=== PATIENT | female | born 1945 | race Caucasian/White ===

== ENCOUNTER 2019-02-04 13:45 | Emergency (ER) | payer MEDICARE ==
[~2019-02-04] VITALS: Ht 165.1 cm; Wt 74.1 kg
[~2019-02-04 13:45] MED LIST: ATEN-169 PO; ESOM40CA PO; GABA600T13 PO; LISI1TAB32 PO
[2019-02-04 15:53] VITALS: BP 127/52
== END 2019-02-04 15:55 | disposition home or self-care (01) ==
LOC: ER 13:45
DX: S43.421A Sprain of right rotator cuff capsule, initial encounter (principal); S60.221A Contusion of right hand, initial encounter; S09.8XXA Other specified injuries of head, initial encounter; M54.5 Low back pain; I10 Essential (primary) hypertension; Z88.0 Allergy status to penicillin; Z79.899 Other long term (current) drug therapy; Z90.49 Acquired absence of other specified parts of digestive tract; Z98.890 Other specified postprocedural states; W18.39XA Other fall on same level, initial encounter; Y93.89 Activity, other specified; Y92.89 Other specified places as the place of occurrence of the external cause; Y99.8 Other external cause status
CPT/HCPCS: 70450; 71045; 72125; 73030; 73130; 99284

== ENCOUNTER 2021-01-25 06:59 | Day surgery (SDC) | payer MEDICARE ==
[2021-01-18 16:28] LABS: BASOPHILS % (AUTO) 0.7 % (0-1); EOSINOPHILS # (AUTO) 0.2 X10'3 (0-0.9); LYMPHOCYTES # (AUTO) 2.2 X10'3 (1.1-4.8); MEAN CORPUSCULAR HEMOGLOBIN 33.2 PG (27.0-31.0); MEAN CORPUSCULAR HGB CONC 33.9 g/dL (33.0-36.5); MEAN CORPUSCULAR VOLUME 98.1 FL (78-98); MEAN PLATELET VOLUME 9.1 FL (7.4-10.4); MONOCYTES # (AUTO) 0.7 X10'3 (0-0.9); NEUTROPHILS % (AUTO) 48.3 % (42-75); PRE OP HEMATOCRIT 36.2 % (35.0-45.0); PRE OP HEMOGLOBIN 12.2 g/dL (12.0-16.0); PRE OP PLATELET COUNT 320 X10'3 (140-440); RED BLOOD COUNT 3.69 X10'6 (4.20-5.60); RED CELL DISTRIBUTION WIDTH 14.8 % (11.5-14.5)
[2021-01-18 16:43] LABS: ALBUMIN 4.3 G/DL (3.4-5.0); ALBUMIN/GLOBULIN RATIO 1.3 (1.1-1.5); ALKALINE PHOSPHATASE 32 IU/L (46-116); BLOOD UREA NITROGEN 18 MG/DL (7-18); BUN/CREATININE RATIO 16.8 (6.6-38.0); CALCIUM 8.8 MG/DL (8.5-10.1); CHLORIDE 100 MMOL/L (99-107); CREATININE 1.07 MG/DL (0.40-0.90); PRE OP ALT 25 U/L (30-65); PRE OP ANION GAP 12 (8-16); PRE OP AST 18 U/L (10-37); PRE OP BILIRUB, TOTAL 0.5 MG/DL (0.0-1.0); PRE OP GLUCOSE 98 MG/DL (70-104); PRE OP POTASSIUM 3.5 MMOL/L (3.4-5.1); PRE OP SODIUM 136 MMOL/L (135-145); TOTAL PROTEIN 7.5 G/DL (6.4-8.2); eGFR 50 ML/MIN
[2021-01-25] VITALS (7 sets, daily range): BP systolic 110–132; BP diastolic 72–96
[~2021-01-25] VITALS: Ht 163.8 cm; Wt 83.2 kg
[~2021-01-25 06:59] MED LIST changes: +ACET-2119 PO; -ATEN-169 PO; +ATRNS; +CALC-336 PO; +CRAN450T4 PO; +DENO60DI SUBCUT; +DOCUMENT DATE & TIME OF BETA-BLOCKER PO ONE; -ESOM40CA PO; +FENO145T26 PO; -GABA600T13 PO; +HYDR12.55 PO; -LISI1TAB32 PO; +LYR75C PO; +MONT10TA32 PO; +MULT-1085 PO; +PANT-47 PO; +RIVA20TA PO; +clindamycin-Cleocin 900mg/D5W 50 ML IV ONE; +famotidine 20mg tablet PO ONE; +ringers solution, lacted 1,000 ML IV SCH
[2021-01-25] MEDS ORDERED: BUPIVAcaine/PF 2.5mg/ml (0.25%) 10ml vial ONE (07:03)
[2021-01-25] MEDS ORDERED: LIDOcaine 1% 30ml preserv. free vial ONE (07:43)
[2021-01-25] MEDS ORDERED: METO-384 PO (08:13)
[2021-01-25] MEDS ORDERED: fentaNYL/PF 50MCG/1 ML 2ML syringe ONE (08:37)
[2021-01-25] MEDS ORDERED: midazolam 1 mg/ML 2ml injection ONE (08:37)
[2021-01-25] MEDS ORDERED: acetaminophen 1,000mg/100ml IV 100 ML IV ONE (08:41)
[2021-01-25] MEDS ORDERED: ketorolac trometh. 30mg/ml inj. ONE (09:24)
--- NOTE | 2021-01-25 09:42 | NUR ---
Received from OR via [facility] IN STABLE CONDITION , accompanied by Anesthesiologist and SUGAR HOUSE SUPERVISOR report given by SUGAR HOUSE SUPERVISOR AND Anesthesiolgist. Addendum: 01/25/21 at 1020 by Isabel Pan RN Amended: Links added.
--- NOTE | 2021-01-25 09:45 | NUR ---
OVERRIDE METOLLIEOL FOR DR. GARRISON FOR HIGH HEARTRATE 160BPM. Addendum: 01/25/21 at 1019 by Isabel Pan RN Amended: Links added.
[2021-01-25] MEDS ORDERED: metoprolol tartrate 1mg/ml inj IV ONE (09:46)
--- NOTE | 2021-01-25 10:42 | NUR ---
PATIENT DISCHARGED FROM PACU AFTER VERBAL AND WRITTEN DISCHARGE INSTRUCTIONS GIVEN. PATIENT GAVE VERBAL UNDERSTANDING OF INSTRUCTIONS GIVEN. PATIENT LEFT FACILITY VIA WHEELCHAIR WITH RN. Addendum: 01/25/21 at 1108 by Isabel Pan RN Amended: Links added.
== END 2021-01-25 10:42 | disposition home or self-care (01) ==
LOC: PAS 06:59
PROVIDERS: ATTEND Orthopaedic Surgery Hand Surgery
DX: L60.8 Other nail disorders (principal); Z20.822 Contact with and (suspected) exposure to COVID-19; M19.011 Primary osteoarthritis, right shoulder; M17.0 Bilateral primary osteoarthritis of knee; M19.071 Primary osteoarthritis, right ankle and foot; M19.072 Primary osteoarthritis, left ankle and foot; I48.20 Chronic atrial fibrillation, unspecified; I10 Essential (primary) hypertension; K21.9 Gastro-esophageal reflux disease without esophagitis; M81.0 Age-related osteoporosis without current pathological fracture; E66.9 Obesity, unspecified; Z68.30 Body mass index [BMI] 30.0-30.9, adult; Z79.899 Other long term (current) drug therapy; Z88.0 Allergy status to penicillin; Z98.890 Other specified postprocedural states; Z85.828 Personal history of other malignant neoplasm of skin; Z90.49 Acquired absence of other specified parts of digestive tract; Z98.41 Cataract extraction status, right eye; Z98.42 Cataract extraction status, left eye
CPT/HCPCS: 11750; 36415; 71046; 80053; 82948; 85025; J0131; J1885; J2001; J2250; J3010; J3490; J7120; U0003; U0005; Z7506; A4215; A4618; A7000

== ENCOUNTER 2021-05-03 15:09 | Emergency (ER) | payer MEDICARE ==
[~2021-05-03] VITALS: Ht 162.6 cm; Wt 81.8 kg
[~2021-05-03 15:09] MED LIST changes: -DOCUMENT DATE & TIME OF BETA-BLOCKER PO ONE; +METO-384 PO; +MONT-40 PO; -MONT10TA32 PO; -clindamycin-Cleocin 900mg/D5W 50 ML IV ONE; -famotidine 20mg tablet PO ONE; -ringers solution, lacted 1,000 ML IV SCH
[2021-05-03] MEDS ORDERED: HYDROcodone/acetaminophen 5mg/325mg tablet PO ONE (21:40)
[2021-05-03] MEDS ORDERED: ondansetron 4mg rapidly disintigrating tab PO ONE (21:40)
--- NOTE | 2021-05-03 21:51 | NUR ---
XRAY IS IN WITH THE PATIENT
[2021-05-03] MEDS ORDERED: ACET-1025 PO (23:21)
[2021-05-03 23:37] VITALS: BP 135/78
== END 2021-05-04 00:01 | disposition home or self-care (01) ==
LOC: ER 15:11
DX: M25.552 Pain in left hip (principal); I48.91 Unspecified atrial fibrillation; I10 Essential (primary) hypertension; Z90.49 Acquired absence of other specified parts of digestive tract; Z98.890 Other specified postprocedural states; Z88.0 Allergy status to penicillin; Z79.899 Other long term (current) drug therapy
CPT/HCPCS: 73502; 73552; 99284

== ENCOUNTER 2021-10-22 05:25 | Day surgery (SDC) | payer MEDICARE ==
[2021-10-14 14:43] LABS: BASOPHILS % (AUTO) 0.7 % (0-1); EOSINOPHILS # (AUTO) 0.3 X10'3 (0-0.9); EOSINOPHILS % (AUTO) 4.6 % (0-6); LYMPHOCYTES # (AUTO) 1.5 X10'3 (1.1-4.8); LYMPHOCYTES % (AUTO) 23.9 % (21-51); MEAN CORPUSCULAR HEMOGLOBIN 33.4 PG (27.0-31.0); MEAN CORPUSCULAR HGB CONC 33.9 g/dL (33.0-36.5); MEAN CORPUSCULAR VOLUME 98.5 FL (78-98); MEAN PLATELET VOLUME 8.5 FL (7.4-10.4); MONOCYTES # (AUTO) 0.7 X10'3 (0-0.9); MONOCYTES % (AUTO) 10.7 % (2-12); NEUTROPHILS # (AUTO) 3.9 X10'3 (1.8-7.7); NEUTROPHILS % (AUTO) 60.1 % (42-75); PRE OP HEMATOCRIT 34.3 % (35.0-45.0); PRE OP HEMOGLOBIN 11.6 g/dL (12.0-16.0); PRE OP PLATELET COUNT 307 X10'3 (140-440); RED BLOOD COUNT 3.48 X10'6 (4.20-5.60); RED CELL DISTRIBUTION WIDTH 13.6 % (11.5-14.5)
[2021-10-14 15:07] LABS: ALBUMIN/GLOBULIN RATIO 1.3 (1.1-1.5); ALKALINE PHOSPHATASE 16 IU/L (46-116); BLOOD UREA NITROGEN 15 MG/DL (7-18); BUN/CREATININE RATIO 14.6 (6.6-38.0); CALCIUM 9.3 MG/DL (8.5-10.1); CHLORIDE 97 MMOL/L (99-107); CREATININE 1.03 MG/DL (0.40-0.90); PRE OP ALT 15 U/L (30-65); PRE OP ANION GAP 10 (8-16); PRE OP AST 19 U/L (10-37); PRE OP BILIRUB, TOTAL 0.3 MG/DL (0.0-1.0); PRE OP GLUCOSE 94 MG/DL (70-104); TOTAL CARBON DIOXIDE 22.6 MMOL/L (24-32); eGFR 52 ML/MIN
[2021-10-14 15:16] LABS: PRE OP SODIUM 130 MMOL/L (135-145)
[2021-10-14 15:17] LABS: PRE OP POTASSIUM 4.4 MMOL/L (3.4-5.1)
[~2021-10-22] VITALS: Ht 162.6 cm; Wt 86.9 kg
[~2021-10-22 05:25] MED LIST changes: -ATRNS; -CRAN450T4 PO; -HYDR12.55 PO; +LOSA50TA64 PO; +ringers solution, lacted 1,000 ML IV SCH
[2021-10-22] MEDS ORDERED: famotidine 20mg tablet PO ONE (05:30)
[2021-10-22] MEDS ORDERED: clindamycin-Cleocin 900mg/D5W 50 ML IV ONE (05:30)
[2021-10-22] MEDS ORDERED: DOCUMENT DATE & TIME OF BETA-BLOCKER PO ONE (05:30)
[2021-10-22 05:35] VITALS: BP 126/73
[2021-10-22] MEDS ORDERED: BUPIVAcaine 0.5% inj/PF 30 ML ONE (06:39)
[2021-10-22 06:42] LABS: ISTAT CREATININE 0.8 mg/dL (0.6-1.1); ISTAT HGB 11.2 g/dl (12.0-16.0); ISTAT IONIZED CALCIUM 1.26 mmol/L (1.03-1.32); ISTAT K 4.1 mmol/L (3.5-5.1)
[2021-10-22] MEDS ORDERED: LIDOcaine 0.5% (5mg/ml) 50ml vial ONE (06:59)
[2021-10-22] MEDS ORDERED: hydrALAZINE 20mg/ml inj. IV PRN (07:05)
[2021-10-22] MEDS ORDERED: morphine 2 MG/ML inj. syringe IV PRN (07:05)
[2021-10-22] MEDS ORDERED: fentaNYL/PF 50MCG/1 ML 2ML syringe IV PRN ×2 (07:05)
[2021-10-22] MEDS ORDERED: ringers solution, lacted 1,000 ML IV SCH (07:05)
[2021-10-22] MEDS ORDERED: labetalol 20mg/4ml (5mg/ml) syringe IV PRN (07:05)
[2021-10-22] MEDS ORDERED: morphine 4 MG/ML inj SYRINge IV PRN (07:05)
[2021-10-22] MEDS ORDERED: ondansetron/PF 4mg/2ml inj IV PRN (07:05)
[2021-10-22] MEDS ORDERED: MIDAZolam 1 MG/ML 5ML VIAL ONE (07:07)
[2021-10-22] MEDS ORDERED: fentaNYL/PF 50MCG/1 ML 2ML syringe ONE (07:07)
[2021-10-22] MEDS ORDERED: BUPIVAcaine 0.5% inj/PF 30 ml vial IJ ONE (07:15)
[2021-10-22] MEDS ORDERED: metoprolol tartrate 1mg/ml inj IV ONE (07:46)
[2021-10-22 08:29] VITALS: BP 102/80
--- NOTE | 2021-10-22 08:29 | NUR ---
Received from OR via [facility] , accompanied by Anesthesiologist TARAS and report given by Anesthesiolgist. PATIENT WITH ALIVIA AND SPLINT TO LEFT WRIST AND ALIVIA TO LEFT ELBOW, DENIES PAIN AT THIS TIME. + CAP REFILL TO FINGERS ON LEFT HAND- ALL PWD Addendum: 10/22/21 at 0837 by Elbert Villanueva RN, RN Amended: Links added.
[2021-10-22 08:40] VITALS: BP 130/78
[2021-10-22 08:50] VITALS: BP 124/72
[2021-10-22 09:00] VITALS: BP 124/87
[2021-10-22 09:10] VITALS: BP 121/81
--- NOTE | 2021-10-22 09:19 | NUR ---
ALL DISCHARGE CRITERIA HAS BEEN MET. VSS, PAIN AT A TOLERABLE LEVEL, VOIDING AND ABLE TO SAFELY AMBULATE SLOWLY AND TRANSFER SELF. IV TAKEN OUT WITHOUT ANY COMPLICATIONS. ALL DISCHARGE INSTRUCTIONS COVERED WITH PATIENT AND ALL QUESTIONS ANSWERED. PATIENT TAKEN OUT VIA WHEELCHAIR TO PERSONAL VEHICLE WHERE FAMILY/FRIEND DROVE PATIENT HOME. SON DROVE PATIENT HOME. Addendum: 10/22/21 at 0921 by Elbert Villanueva RN, RN Amended: Links added.
== END 2021-10-22 09:19 | disposition home or self-care (01) ==
LOC: PAS 05:25
PROVIDERS: ATTEND Orthopaedic Surgery Hand Surgery
DX: M19.032 Primary osteoarthritis, left wrist (principal); M77.12 Lateral epicondylitis, left elbow; I48.91 Unspecified atrial fibrillation; M19.071 Primary osteoarthritis, right ankle and foot; M19.072 Primary osteoarthritis, left ankle and foot; M19.011 Primary osteoarthritis, right shoulder; I10 Essential (primary) hypertension; M17.0 Bilateral primary osteoarthritis of knee; K21.9 Gastro-esophageal reflux disease without esophagitis; M81.0 Age-related osteoporosis without current pathological fracture; E66.9 Obesity, unspecified; Z68.30 Body mass index [BMI] 30.0-30.9, adult; Z72.89 Other problems related to lifestyle; Z98.890 Other specified postprocedural states; Z20.822 Contact with and (suspected) exposure to COVID-19; Z88.0 Allergy status to penicillin; Z96.611 Presence of right artificial shoulder joint; Z90.710 Acquired absence of both cervix and uterus; Z79.899 Other long term (current) drug therapy
CPT/HCPCS: 24358; 25215; 36415; 80047; 80053; 85025; J2250; J3010; J3490; J7120; S0020; U0003; U0005; Z7512; 82948; A4618; A6449; A7000

== ENCOUNTER 2024-09-02 06:32 | Day surgery (SDC) | payer MEDICARE ==
[2024-08-28 15:16] LABS: BASOPHILS % (AUTO) 0.5 % (0-1); EOSINOPHILS # (AUTO) 0.2 X10'3 (0-0.9); EOSINOPHILS % (AUTO) 4.5 % (0-6); LYMPHOCYTES # (AUTO) 1.6 X10'3 (1.1-4.8); LYMPHOCYTES % (AUTO) 29.9 % (21-51); MEAN CORPUSCULAR HGB CONC 34.1 g/dL (33.0-36.5); MEAN CORPUSCULAR VOLUME 96.8 FL (78-98); MEAN PLATELET VOLUME 8.6 FL (7.4-10.4); MONOCYTES # (AUTO) 0.5 X10'3 (0-0.9); MONOCYTES % (AUTO) 9.9 % (2-12); NEUTROPHILS # (AUTO) 2.9 X10'3 (1.8-7.7); NEUTROPHILS % (AUTO) 55.2 % (42-75); PRE OP HEMATOCRIT 35.9 % (35.0-45.0); PRE OP HEMOGLOBIN 12.2 g/dL (12.0-16.0); PRE OP PLATELET COUNT 257 X10'3 (140-440); PRE OP WHITE BLOOD COUNT 5.3 10'3 (4.8-10.8); RED BLOOD COUNT 3.71 X10'6 (4.20-5.60); RED CELL DISTRIBUTION WIDTH 14.5 % (11.5-14.5)
[2024-08-28 15:34] LABS: ALBUMIN 4.2 G/DL (3.4-5.0); ALBUMIN/GLOBULIN RATIO 1.2 (1.1-1.5); ALKALINE PHOSPHATASE 16 IU/L (46-116); BLOOD UREA NITROGEN 17 MG/DL (7-18); BUN/CREATININE RATIO 17.2 (10.0-20.0); CALCIUM 9.1 MG/DL (8.5-10.1); CHLORIDE 97 MMOL/L (99-107); CREATININE 0.99 MG/DL (0.40-0.90); PRE OP ALT 19 U/L (30-65); PRE OP ANION GAP 7 (8-16); PRE OP AST 22 U/L (10-37); PRE OP BILIRUB, TOTAL 0.8 MG/DL (0.0-1.0); PRE OP GLUCOSE 95 MG/DL (70-104); PRE OP POTASSIUM 4.6 MMOL/L (3.4-5.1); PRE OP SODIUM 131 MMOL/L (135-145); TOTAL CARBON DIOXIDE 27.1 MMOL/L (24-32); TOTAL PROTEIN 7.6 G/DL (6.4-8.2); eGFR 54 ML/MIN
[~2024-09-02] VITALS: Ht 163.8 cm; Wt 93.0 kg
[2024-09-02] VITALS (8 sets, daily range): BP systolic 114–143; BP diastolic 62–95; PULSE 70–91; RESP 12–16; TEMP 98.5; O2SAT 93–99
[~2024-09-02 06:32] MED LIST changes: -ACET-2119 PO; +ASCO1TAB42 PEG; +CRAN500C4 PO; -MONT-40 PO; +[UNRECOGNIZED DRUG - OTHER] PO; +[UNRECOGNIZED DRUG - OTHER] PO; -ringers solution, lacted 1,000 ML IV SCH
[2024-09-02] MEDS ORDERED: LIDOcaine 2% (20mg/ml) 5ml vial ONE (06:57)
[2024-09-02] MEDS ORDERED: BUPIVAcaine/PF 2.5mg/ml (0.25%) 10ml vial ONE ×2 (06:57→07:46)
[2024-09-02] MEDS: famotidine 20mg tablet PO ONE (07:30)
[2024-09-02] MEDS: ringers solution, lacted 1,000 ML IV SCH (07:31)
[2024-09-02] MEDS: clindamycin 600mg/D5W 50ml 50 ML IV ONE (07:31)
[2024-09-02] MEDS: DOCUMENT DATE & TIME OF BETA-BLOCKER PO ONE (07:31)
[2024-09-02] MEDS ORDERED: hydrALAZINE 20mg/ml inj. IV PRN (08:00)
[2024-09-02] MEDS ORDERED: morphine 4 MG/ML inj SYRINge IV PRN (08:00)
[2024-09-02] MEDS ORDERED: morphine 2 MG/ML inj. syringe IV PRN (08:00)
[2024-09-02] MEDS ORDERED: proCHLORperazine 10 MG/2 ml inj IV PRN (08:00)
[2024-09-02] MEDS ORDERED: meperidine/PF 25mg/ml syringe IV PRN ×3 (08:00)
[2024-09-02] MEDS ORDERED: ringers solution, lacted 1,000 ML IV SCH (08:00)
[2024-09-02] MEDS ORDERED: labetalol 20mg/4ml (5mg/ml) syringe IV PRN (08:00)
[2024-09-02] MEDS ORDERED: ondansetron/PF 4mg/2ml inj IV PRN (08:00)
[2024-09-02] MEDS ORDERED: acetaminophen 1,000mg/100ml IV 100 ML IV PRN (08:00)
[2024-09-02] MEDS ORDERED: propofol 10mg/ml 20ml vial IV ONE (09:26)
[2024-09-02] MEDS ORDERED: fentaNYL/PF 50MCG/1 ML 2ML syringe ONE (09:38)
[2024-09-02] MEDS ORDERED: midazolam 1 mg/ML 2ml injection ONE (09:55)
[2024-09-02] MEDS ORDERED: LIDOcaine 0.5% (5mg/ml) 50ml vial ONE (09:56)
[2024-09-02] MEDS: BUPIVAcaine/PF 2.5mg/ml (0.25%) 10ml vial IJ ONE (10:16)
== END 2024-09-02 11:06 | disposition home or self-care (01) ==
LOC: PAS 06:32
PROVIDERS: ATTEND Orthopaedic Surgery Hand Surgery
DX: M25.331 Other instability, right wrist (principal); K21.9 Gastro-esophageal reflux disease without esophagitis; I48.91 Unspecified atrial fibrillation; Z98.890 Other specified postprocedural states; Z90.710 Acquired absence of both cervix and uterus; I10 Essential (primary) hypertension; M19.90 Unspecified osteoarthritis, unspecified site; G62.9 Polyneuropathy, unspecified; Z88.0 Allergy status to penicillin; M80.00XA Age-related osteoporosis with current pathological fracture, unspecified site, initial encounter for fracture; M51.26 Other intervertebral disc displacement, lumbar region; Z96.611 Presence of right artificial shoulder joint; M19.072 Primary osteoarthritis, left ankle and foot; M19.071 Primary osteoarthritis, right ankle and foot; M19.011 Primary osteoarthritis, right shoulder; M47.816 Spondylosis without myelopathy or radiculopathy, lumbar region; M17.0 Bilateral primary osteoarthritis of knee; Z72.89 Other problems related to lifestyle
CPT/HCPCS: 25215; 36415; 80053; 82948; 85025; A4215; A6449; J2003; J2250; J2704; J3010; J3490; J7030; J7120; Z7506; Z7512; Z7610